=== PATIENT | female | born 1980 | race Caucasian/White ===

== ENCOUNTER → 2023-11-11 12:06 | Outpatient (REF) | payer BC, SELFPAY | LOC: WDC 12:06 | PROVIDERS: ATTENDING PHYSICIAN Physician Assistant Medical | DX: Z12.31 Encounter for screening mammogram for malignant neoplasm of breast (principal) | CPT/HCPCS: 77063; 77067 ==

== ENCOUNTER → 2024-11-13 12:38 | Outpatient (REF) | payer BC, SELFPAY | LOC: WDC 12:38 | PROVIDERS: ATTENDING PHYSICIAN Student in an Organized Health Care Education/Training Program | DX: Z12.31 Encounter for screening mammogram for malignant neoplasm of breast (principal) | CPT/HCPCS: 77063; 77067 ==